=== PATIENT | female | born 1965 | race Caucasian/White ===

== ENCOUNTER 2020-11-15 19:26 | Emergency (ER) | payer OTHER ==
[~2020-11-15 19:26] MED LIST: Iopamidol-370 76% 500 ML 1 ML ONE
[2020-11-15 20:03] LABS: #Eosinphils 0.1 thou/uL (0.0-0.7); #Lymphocytes 1.6 thou/uL (1.20-3.40); #Monocytes 0.6 thou/uL (0.11-0.59); #Neutrophils 7.3 thou/uL (1.40-6.50); %Basophils 0.4 % (0.0-1.0); %Eosinophils 0.8 % (0.0-10.0); %Monocytes 6.5 % (0.0-10.0); %Neutrophils 75.3 % (42.0-75.0); Mean Corpuscular HGB CONC 33.5 g/dL (32.0-36.0); Mean Corpuscular Hemoglobin 31.8 pg (27.0-31.0); Mean Corpuscular Volume 94.9 fL (78.0-98.0); Mean Platelet Volume 6.3 fL (7.4-10.4); Platelet Count 428 thou/uL (130-400); RBC Distribution Width 11.9 % (11.5-14.5); Red Blood Cell (RBC) Count 4.09 mill/uL (4.20-5.40); White Blood Cell (WBC) Count 9.7 thou/uL (4.8-10.8)
[2020-11-15 20:23] LABS: ALT (SGPT) 14 U/L (8-55); AST (SGOT) 11 U/L (5-34); Albumin 3.9 g/dL (3.5-5.0); Alkaline Phosphatase 109 U/L (40-110); Anion Gap 18 mmol/L (10-20); BUN (Urea Nitrogen) 17 mg/dL (9.8-20.1); Bilirubin, Total 0.7 mg/dL (0.2-1.2); Calc. Creatinine Clearance 0 mL/min (70-130); Calcium 9.7 mg/dL (7.8-10.44); Carbon Dioxide 17 mmol/L (22-29); Chloride 105 mmol/L (98-107); Globulin 3.4 g/dL (2.4-3.5); Glucose 101 mg/dL (70-105); Potassium 3.3 mmol/L (3.5-5.1); Protein, Total 7.3 g/dL (6.0-8.3); Sodium 137 mmol/L (136-145)
[2020-11-15] MEDS ORDERED: Albuterol Sulfate 1.25 MG/3 ML NEB ONE (20:48)
[2020-11-15] MEDS ORDERED: predniSONE 20 MG TAB ONE (20:48)
[2020-11-15] MEDS ORDERED: Azithromycin 500 MG VIAL ONE (20:48)
[2020-11-15] MEDS ORDERED: Lisinopril 10 MG TAB ONE (20:48)
[2020-11-15] MEDS ORDERED: Amoxicillin/Potassium Clav 875 MG TAB ONE (23:35)
== END 2020-11-15 23:50 | disposition home or self-care (01) ==
LOC: ERS 19:26
DX: J18.9 Pneumonia, unspecified organism (principal); R09.02 Hypoxemia; R59.1 Generalized enlarged lymph nodes; I10 Essential (primary) hypertension; G40.909 Epilepsy, unspecified, not intractable, without status epilepticus; C79.9 Secondary malignant neoplasm of unspecified site
CPT/HCPCS: 71045; 71275; 80053; 83880; 84484; 85025; 93005; 96365; J0456; J7512; Q9967

== ENCOUNTER 2021-06-21 15:46 | Outpatient (CLI) | payer MEDICARE, OTHER | END 2021-06-21 15:47 | disposition home or self-care (01) | LOC: BICRAD 15:46 | DX: M25.561 Pain in right knee (principal); M25.551 Pain in right hip ==

== ENCOUNTER 2021-08-26 01:06 | Emergency (ER) | payer MEDICARE, OTHER ==
[2021-08-26 02:05] LABS: #Basophils 0.1 thou/uL (0.0-0.2); #Eosinphils 0.1 thou/uL (0.0-0.7); #Monocytes 0.9 thou/uL (0.11-0.59); #Neutrophils 5.7 thou/uL (1.40-6.50); %Basophils 0.9 % (0.0-1.0); %Eosinophils 0.8 % (0.0-10.0); %Neutrophils 58.3 % (42.0-75.0); Hemoglobin 11.1 g/dL (12.0-16.0); Mean Corpuscular HGB CONC 33.1 g/dL (32.0-36.0); Mean Corpuscular Hemoglobin 31.5 pg (27.0-31.0); Mean Corpuscular Volume 95.1 fL (78.0-98.0); Mean Platelet Volume 5.5 fL (7.4-10.4); Platelet Count 365 thou/uL (130-400); RBC Distribution Width 12.8 % (11.5-14.5); Red Blood Cell (RBC) Count 3.53 mill/uL (4.20-5.40); White Blood Cell (WBC) Count 9.8 thou/uL (4.8-10.8)
[2021-08-26 02:28] LABS: Acetaminophen Less than 6.0 mcg/mL (10.0-30.0); Alcohol Less than 10 mg/dL (Less than 10); Salicylate Less than 8.0 mg/dL (15.0-30.0)
[2021-08-26 02:29] LABS: ALT (SGPT) 40 U/L (8-55); AST (SGOT) 23 U/L (5-34); Albumin 4.3 g/dL (3.5-5.0); Alkaline Phosphatase 308 U/L (40-110); Anion Gap 16 mmol/L (10-20); BUN (Urea Nitrogen) 14 mg/dL (9.8-20.1); Bilirubin, Total 0.5 mg/dL (0.2-1.2); Calc. Creatinine Clearance 0 mL/min (70-130); Calcium 9.3 mg/dL (7.8-10.44); Carbon Dioxide 22 mmol/L (22-29); Chloride 95 mmol/L (98-107); Globulin 2.3 g/dL (2.4-3.5); Glucose 94 mg/dL (70-105); Potassium 3.6 mmol/L (3.5-5.1); Protein, Total 6.6 g/dL (6.0-8.3); Sodium 129 mmol/L (136-145)
[2021-08-26 03:19] LABS: Amphetamine Not Detected (NotDetected); Barbiturates Screen Not Detected (NotDetected); Benzodiazepine Screen Detected (NotDetected); Cocaine Metabolite Screen Not Detected (NotDetected); Methadone Not Detected (NotDetected); Methamphetamine Not Detected (NotDetected); Opiate Screen Detected (NotDetected); Oxycodone Screen Not Detected (NotDetected); Phencyclidine (PCP) Not Detected (NotDetected); THC/Cannabinoid Screen Detected (NotDetected); Tricyclic Screen Not Detected (NotDetected)
== END 2021-08-26 06:14 | disposition home or self-care (01) ==
LOC: ERS 01:06
DX: F19.10 Other psychoactive substance abuse, uncomplicated (principal); R13.10 Dysphagia, unspecified; R09.89 Other specified symptoms and signs involving the circulatory and respiratory systems; I10 Essential (primary) hypertension; G40.909 Epilepsy, unspecified, not intractable, without status epilepticus; Z85.820 Personal history of malignant melanoma of skin; Z79.899 Other long term (current) drug therapy
CPT/HCPCS: 36415; 70450; 80053; 80306; 80307; 84484; 85025; 93005

== ENCOUNTER 2022-05-29 14:00 | Outpatient (CLI) | payer OTHER | END 2022-05-29 14:01 | disposition home or self-care (01) | LOC: MRI 14:00 | PROVIDERS: ATTEND Orthopaedic Surgery | DX: R10.2 Pelvic and perineal pain (principal); S76.312A Strain of muscle, fascia and tendon of the posterior muscle group at thigh level, left thigh, initial encounter; S76.311A Strain of muscle, fascia and tendon of the posterior muscle group at thigh level, right thigh, initial encounter; M71.9 Bursopathy, unspecified; M25.451 Effusion, right hip | CPT/HCPCS: 72195; 72197 ==

== ENCOUNTER 2022-10-29 00:43 | Emergency (ER) | payer OTHER ==
[2022-10-29 01:42] LABS: #Basophils 0.1 thou/uL (0.0-0.2); #Eosinphils 0.1 thou/uL (0.0-0.7); #Monocytes 0.6 thou/uL (0.11-0.59); #Neutrophils 2.1 thou/uL (1.40-6.50); %Basophils 1.1 % (0.0-1.0); %Eosinophils 1.1 % (0.0-10.0); %Neutrophils 46.6 % (42.0-75.0); Hemoglobin 11.1 g/dL (12.0-16.0); Mean Corpuscular HGB CONC 34.3 g/dL (32.0-36.0); Mean Corpuscular Hemoglobin 31.3 pg (27.0-31.0); Mean Corpuscular Volume 91.3 fl (78.0-98.0); Platelet Count 268 10x3/uL (130-400); RBC Distribution Width 12.8 % (11.5-14.5); Red Blood Cell (RBC) Count 3.55 mill/uL (4.20-5.40); White Blood Cell (WBC) Count 4.5 10x3/uL (4.8-10.8)
[2022-10-29 02:05] LABS: ALT (SGPT) 14 U/L (8-55); AST (SGOT) 18 U/L (5-34); Albumin 3.7 g/dL (3.5-5.0); Alkaline Phosphatase 73 U/L (40-110); Anion Gap 9 mmol/L (10-20); BUN (Urea Nitrogen) 6 mg/dL (9.8-20.1); Bilirubin, Total 0.4 mg/dL (0.2-1.2); Calc. Creatinine Clearance 0 mL/min (70-130); Calcium 8.9 mg/dL (7.8-10.44); Carbon Dioxide 24 mmol/L (22-29); Chloride 108 mmol/L (98-107); Estimated GFR 78; Globulin 2.1 g/dL (2.4-3.5); Glucose 82 mg/dL (70-105); Potassium 3.7 mmol/L (3.5-5.1); Protein, Total 5.8 g/dL (6.0-8.3); Sodium 137 mmol/L (136-145)
== END 2022-10-29 04:12 | disposition home or self-care (01) ==
LOC: ERS 00:43
DX: R56.9 Unspecified convulsions (principal); D72.829 Elevated white blood cell count, unspecified; I10 Essential (primary) hypertension; Z79.899 Other long term (current) drug therapy
CPT/HCPCS: 36415; 80053; 85025; 99284

== ENCOUNTER 2022-10-31 23:53 | Observation (INO) | payer OTHER ==
[2022-11-01 01:13] LABS: #Monocytes 0.6 thou/uL (0.11-0.59); #Neutrophils 5.6 thou/uL (1.40-6.50); %Basophils 0.5 % (0.0-1.0); %Eosinophils 0.4 % (0.0-10.0); %Lymphocytes 22.1 % (21.0-51.0); %Monocytes 7.2 % (0.0-10.0); %Neutrophils 69.6 % (42.0-75.0); Hemoglobin 13.1 g/dL (12.0-16.0); Mean Corpuscular HGB CONC 34.9 g/dL (32.0-36.0); Mean Corpuscular Hemoglobin 31.3 pg (27.0-31.0); Mean Corpuscular Volume 89.7 fl (78.0-98.0); Mean Platelet Volume 8.4 fL (7.4-10.4); Platelet Count 344 10x3/uL (130-400); RBC Distribution Width 12.8 % (11.5-14.5); Red Blood Cell (RBC) Count 4.18 mill/uL (4.20-5.40); White Blood Cell (WBC) Count 8.1 10x3/uL (4.8-10.8)
[2022-11-01 01:38] LABS: ALT (SGPT) 16 U/L (8-55); AST (SGOT) 19 U/L (5-34); Albumin 4.3 g/dL (3.5-5.0); Alkaline Phosphatase 79 U/L (40-110); Anion Gap 12 mmol/L (10-20); BUN (Urea Nitrogen) 8 mg/dL (9.8-20.1); Bilirubin, Total 0.7 mg/dL (0.2-1.2); Calc. Creatinine Clearance 0 mL/min (70-130); Calcium 9.8 mg/dL (7.8-10.44); Carbon Dioxide 25 mmol/L (22-29); Chloride 95 mmol/L (98-107); Estimated GFR 76; Globulin 2.8 g/dL (2.4-3.5); Glucose 109 mg/dL (70-105); Potassium 3.4 mmol/L (3.5-5.1); Protein, Total 7.1 g/dL (6.0-8.3); Sodium 129 mmol/L (136-145)
[2022-11-01] MEDS ORDERED: hydrALAZINE 20 MG/ML VIAL ONE (03:15)
[2022-11-01 03:34] LABS: Bilirubin Negative (Negative); Blood, Urine Negative (Negative); Clarity Turbid (Clear); Glucose, Urine (Dipstick) Normal (Negative); Ketone, Urine Negative (Negative); Leukocyte Negative Leu/uL (Negative); Nitrite Negative (Negative); Protein, Urine (Dipstick) Negative (Neg-Trace); Specific Gravity, Urine 1.012 (1.002-1.036); Urobilinogen Normal mg/dL (Less than 2)
[2022-11-01 03:39] LABS: Amphetamine Not Detected (NotDetected); Barbiturates Screen Not Detected (NotDetected); Benzodiazepine Screen Not Detected (NotDetected); Cocaine Metabolite Screen Not Detected (NotDetected); Methadone Not Detected (NotDetected); Methamphetamine Not Detected (NotDetected); Opiate Screen Not Detected (NotDetected); Oxycodone Screen Not Detected (NotDetected); Phencyclidine (PCP) Not Detected (NotDetected); THC/Cannabinoid Screen Detected (NotDetected); Tricyclic Screen Not Detected (NotDetected)
[2022-11-01] MEDS ORDERED: Haloperidol Lactate 5 MG/ML VIAL ONE ×2 (05:19→05:47)
[2022-11-01] MEDS ORDERED: Acetaminophen 325 MG TAB PO PRN (06:00)
[2022-11-01] MEDS ORDERED: Ondansetron ODT 4 MG TAB SL PRN (06:00)
[2022-11-01] MEDS ORDERED: Ondansetron PF 4 MG/2 ML Vial IVP PRN (06:00)
[2022-11-01] MEDS ORDERED: hydrALAZINE 20 MG/ML VIAL SLOW IVP PRN (07:24)
[2022-11-01] MEDS ORDERED: Lorazepam 2 MG/ML VIAL IM PRN (07:41)
[2022-11-01] MEDS ORDERED: Lorazepam 1 MG TAB PO PRN (07:41)
[2022-11-01] MEDS ORDERED: Electrolyte Replacement Protocol 1 EACH FS SCH (07:45)
[2022-11-01 08:05] LABS: Magnesium 1.7 mg/dL (1.6-2.6); Phosphorus 3.5 mg/dL (2.3-4.7)
[2022-11-01] MEDS ORDERED: Magnesium 2 GM/50 ML(in water) 2 GM in Premix Bag 1 BAG IVPB SCH (09:00)
[2022-11-01] MEDS ORDERED: Potassium Chloride 20 MEQ TAB PO SCH (09:00)
[2022-11-01] MEDS: Folic Acid 1 MG TAB PO SCH (09:33)
[2022-11-01] MEDS: Multivit, Therapeutic 1 TAB PO SCH (09:33)
[2022-11-01] MEDS: Aspirin 81 mg Enteric Coated Tablet PO SCH (09:33)
[2022-11-01] MEDS: Lorazepam 1 MG TAB PO SCH ×3 (09:33→21:04)
[2022-11-01] MEDS: Thiamine HCl 200 MG/2 ML VIAL SLOW IVP SCH (09:34)
[2022-11-01] MEDS: Sodium Chloride 0.9% 1,000 ML IV SCH ×2 (10:57→23:45)
[2022-11-01] MEDS ORDERED: Atorvastatin Calcium 40 MG TAB PO SCH (21:00)
[2022-11-02] MEDS: Lorazepam 1 MG TAB PO SCH ×3 (02:25→13:38)
[2022-11-02 05:26] LABS: Cardiac Risk 2.4 (Less than 4.5)
[2022-11-02] MEDS ORDERED: Lorazepam 1 MG TAB PO PRN (07:41)
[2022-11-02] MEDS: Folic Acid 1 MG TAB PO SCH (09:09)
[2022-11-02] MEDS: Sodium Chloride 0.9% 1,000 ML IV SCH (09:09)
[2022-11-02] MEDS: Thiamine HCl 200 MG/2 ML VIAL SLOW IVP SCH (09:09)
[2022-11-02] MEDS: Multivit, Therapeutic 1 TAB PO SCH (09:09)
[2022-11-02] MEDS: Aspirin 81 mg Enteric Coated Tablet PO SCH (09:13)
[2022-11-02 15:39] VITALS: BP 174/104; TEMP 97.9
[2022-11-03] MEDS ORDERED: Lorazepam 1 MG TAB PO PRN (07:41)
[2022-11-03] MEDS ORDERED: Lorazepam 0.5 MG TAB PO SCH (07:45)
[2022-11-04] MEDS ORDERED: Lorazepam 0.5 MG TAB PO PRN (07:41)
[2022-11-04] MEDS ORDERED: Thiamine 100 MG TAB PO SCH (09:00)
== END 2022-11-02 16:45 | disposition home or self-care (01) ==
LOC: ERS 23:53 → 2NO 11-01 05:15 → ERHOLD 11-01 05:40 → 2NO 11-01 07:33
PROVIDERS: ADMIT Internal Medicine; ATTEND Nurse Practitioner Family
DX: R41.82 Altered mental status, unspecified (principal); E87.1 Hypo-osmolality and hyponatremia; E87.6 Hypokalemia; I10 Essential (primary) hypertension; G40.909 Epilepsy, unspecified, not intractable, without status epilepticus; Z85.820 Personal history of malignant melanoma of skin; Z79.1 Long term (current) use of non-steroidal anti-inflammatories (NSAID); Z79.891 Long term (current) use of opiate analgesic; Z79.899 Other long term (current) drug therapy; Z88.8 Allergy status to other drugs, medicaments and biological substances
CPT/HCPCS: 70450; 70551; 80053; 80061; 80306; 81003; 82962; 83735; 84100; 84146; 85025; 95816; 95819; 95957; 96375; 96376; G0378 ×3; J0360; 36416; 51701; 96374; J1630; J3411; J3475; J7050